=== PATIENT | female | born 1995 | race Caucasian/White ===

== ENCOUNTER 2025-03-05 05:35 | Inpatient (IN) | payer OTHER ==
[2025-03-05] VITALS (8 sets, daily range): BP systolic 106–126; BP diastolic 64–84
[~2025-03-05] VITALS: Ht 154.9 cm; Wt 74.8 kg
[~2025-03-05 05:35] MED LIST: CHLORHEXIDINE GLUCONATE 120 ML BOTTLE TOP ONE; ERYTHROMYCIN BASE OPHT 1GM EACH TUBE OP ONE; LIDOCAINE HCL 1% 10ML VIAL ONE; OXYTOCIN 20 UNITS/1000ML RL PIGGYBAG IV ONE
[2025-03-05] MEDS ORDERED: AMPICILLIN SODIUM 2,000 MG VIAL IV ONE (05:45)
[2025-03-05] MEDS ORDERED: RINGERS SOLUTION,LACTATED 1,000 ML IV SCH (05:45)
[2025-03-05] MEDS ORDERED: PRENATAL TABLE1 EAC4 PO (05:48)
[2025-03-05 06:29] LABS: BASO % 0.4 % (0.1-1.2); EOS # 0.06 (0.04-0.54); EOS % 0.5 % (0.7-7.0); LYMPH # 1.32 (1.18-3.74); LYMPH % 11.7 % (19.3-53.1); MEAN PLATELET VOLUME 13.40 fl (9.4-12.4); MONO # 0.65 (0.24-0.82); MONO % 5.8 % (4.7-12.5); NEUT # 9.08 (1.56-6.13); NEUT % 80.7 % (34.0-71.1); RED CELL DISTRIBUTION WIDTH 14.1 % (11.6-14.4)
[2025-03-05 06:53] LABS: INR 0.94
[2025-03-05] MEDS ORDERED: OXYTOCIN 1,000 ML IV SCH (07:00)
[2025-03-05] MEDS ORDERED: CHLORHEXIDINE GLUCONATE 120 ML BOTTLE TOP SCH (07:00)
[2025-03-05] MEDS ORDERED: ACETAMINOPHEN 500 MG GEL..CAP PO PRN (07:00)
[2025-03-05] MEDS ORDERED: PNV,CALCIUM 72/IRON/FOLIC ACID 1 TAB TABLET PO SCH (09:00)
[2025-03-05 11:20] LABS: BASO % 0.1 % (0.1-1.2); EOS # 0.01 (0.04-0.54); EOS % 0.1 % (0.7-7.0); LYMPH # 0.71 (1.18-3.74); LYMPH % 5.1 % (19.3-53.1); MEAN PLATELET VOLUME 13.30 fl (9.4-12.4); MONO # 0.51 (0.24-0.82); MONO % 3.6 % (4.7-12.5); NEUT # 12.61 (1.56-6.13); NEUT % 90.0 % (34.0-71.1); RED CELL DISTRIBUTION WIDTH 14.2 % (11.6-14.4)
[2025-03-06 09:51] VITALS: BP 100/60
[2025-03-06 15:37] VITALS: BP 120/80
[2025-03-07] VITALS: BP 113/74
[2025-03-07 08:37] VITALS: BP 114/75
[2025-03-07] MEDS ORDERED: PRENATE ENHANC1 EACH PO (14:23)
== END 2025-03-07 16:33 | DRG 807 ==
LOC: LDR 05:35 → OB/GYN 05:35
PROVIDERS: Obstetrics & Gynecology; ADMIT Obstetrics & Gynecology; ATTEND Obstetrics & Gynecology
PROC: 10E0XZZ Delivery of Products of Conception, External Approach (ICD-10-PCS; principal; 2025-03-05)
PROC: 4A1HXCZ Monitoring of Products of Conception, Cardiac Rate, External Approach (ICD-10-PCS; 2025-03-05)
DX: O80 Encounter for full-term uncomplicated delivery (principal); Z37.0 Single live birth; Z3A.38 38 weeks gestation of pregnancy